=== PATIENT | male | born 1995 | race Hispanic/Latino ===

== ENCOUNTER 2022-11-27 15:48 | Emergency (ER) | payer SELFPAY ==
[~2022-11-27] VITALS: Ht 172.7 cm; Wt 94.0 kg
[2022-11-27 17:20] VITALS: BP 161/101
[2022-11-27] MEDS ORDERED: PROVENTIL HFA IN (18:37)
[2022-11-27] MEDS ORDERED: PREDNISONE50 MG PO (18:37)
[2022-11-27 18:54] VITALS: BP 152/84
== END 2022-11-27 19:04 | disposition home or self-care (01) | DRG 204 ==
LOC: ED 15:48
DX: R06.02 Shortness of breath (principal); J45.909 Unspecified asthma, uncomplicated

== ENCOUNTER 2023-09-29 09:24 | Emergency (ER) | payer SELFPAY ==
[2023-09-29] VITALS (13 sets, daily range): BP systolic 82–120; BP diastolic 33–72
[~2023-09-29] VITALS: Ht 172.7 cm; Wt 103.4 kg
[~2023-09-29 09:24] MED LIST: PREDNISONE50 MG PO; PROVENTIL HFA IN
[2023-09-29 10:58] LABS: ALBUMIN 4.2 g/dL (3.2-5.0); ALKALINE PHOSPHATASE 45 u/l (38-126); ANION GAP 15 (6-22 (CALC)); BILIRUBIN, TOTAL 0.9 mg/dL (0.2-1.3); BUN 9 mg/dL (9-20); BUN/CREATININE RATIO 9 (12-20 (CALC)); CARBON DIOXIDE 22 mmol/l (22-30); CHLORIDE 100 mmol/l (95-108); GFR FOR AFR.AMER. > 60 ML/MIN (>=60 (CALC)); GFR OTHER RACES > 60 ML/MIN (>=60 (CALC)); LIPASE 375 u/l (23-300); SGOT/AST 76 u/l (17-59); SODIUM 133 mmol/l (137-146); TOTAL PROTEIN 7.4 g/dL (6.3-8.2)
[2023-09-29 11:23] LABS: BASO% 0.5 % (0-3); HEMATOCRIT 46.3 % (39.0-50.0); HEMOGLOBIN 15.6 g/dl (14.0-18.0); IMMATURE GRANULOCYTES 0.5 % (0.0-5.0); LYMPH% 24.5 % (15-41); MEAN CELL VOLUME 83.7 fL CALC (80.0-100.0); MEAN CORPUSCULAR HGB 28.2 pG CALC (26.0-32.0); MEAN CORPUSCULAR HGB CONC 33.7 g/dL CAL (32.0-36.0); MONO% 4.3 % (2-13); NEUT# 1.29 thou/uL (1.82-7.42); NEUT% 70.2 % (42-76); RED BLOOD COUNT 5.53 mill/uL (4.70-6.10); RED CELL DISTRI WIDTH 13.9 % (11.5-15.5)
[2023-09-29 13:06] LABS: URINE BLOOD DIPSTICK Negative (NEGATIVE); URINE GLUCOSE - DIPSTICK Negative (NEGATIVE); URINE KETONE 40 mg/dL (NEGATIVE); URINE LEUK ESTERASE Negative (NEGATIVE); URINE NITRITE - DIPSTICK Negative (Negative); URINE PROTEIN - DIPSTICK 100 mg/dL (NEG-TRACE)
[2023-09-29 13:08] LABS: URINE COLOR Dark yellow
[2023-09-29 13:09] LABS: INTERNATIONAL NORMALIZED RATIO 1.2 RATIO (0.7-1.3)
[2023-09-29 13:15] LABS: URINE WBC 0-2 WBC/hpf (0-5)
== END 2023-09-29 18:49 | disposition short-term general hospital (02) | DRG 872 ==
LOC: ED 09:24 → ED-I 11:12 → ED 18:49
PROVIDERS: Family Medicine
PROC: 009U3ZX Drainage of Spinal Canal, Percutaneous Approach, Diagnostic (ICD-10-PCS; principal; 2023-09-29)
DX: A41.9 Sepsis, unspecified organism (principal); D69.6 Thrombocytopenia, unspecified; D70.9 Neutropenia, unspecified; I10 Essential (primary) hypertension; E78.5 Hyperlipidemia, unspecified; Z72.0 Tobacco use; Z20.822 Contact with and (suspected) exposure to COVID-19
CPT/HCPCS: J0133; Q9967